=== PATIENT | female | born 1985 | race Caucasian/White ===

== ENCOUNTER 2017-12-05 15:09 | Emergency (ER) | payer MEDICAID ==
[~2017-12-05] VITALS: Ht 147.3 cm; Wt 53.1 kg
[~2017-12-05 15:09] MED LIST: ACHD5005 PO; AMOX-355 PO; CETI10TA17 PO; CODE-54 PO; DICL50TA4 PO; HYDR-34 PO; HYDR1CAP2 PO; IBP600T1 PO; META800T5 PO; METH4TAB PO; METR500T PO; NITR-65 PO; ONDN4T PO; PNV1CAPS13 PO; PRESTIQUE; SULF1TAB38 PO; VENL25TA5 PO
--- OUTSIDE RECORDS SUMMARY | 2017-12-05 15:16 | XMS REPORT | Continuity Of Care Document ---
Author Author [facility] Organization [facility] Address [address] [place] [address] Phone Care Team Providers Care Product Designer Name Role Phone MATT LARES MD Unavailable UNASSIGNED, ED PHYSICIAN Unavailable Unavailable SOHAIL CARVER, ISAMAR Epstein AT [phone] TELLO QUINONES MD Unavailable Results Results No results recorded. Allergies and Adverse Reactions Allergies and Adverse Reactions Patient Unit Number: [id number] Agent Type Reaction Severity Status BUPROPION Drug Allergy Unknown Unknown Active Problem List Problem List Visit/Account #[id number] (November 11, 2015 8:35pm - November 11, 2015 10:50pm) Acute Problems: Code/Condition Comments Documented Start Date Documented Resolved Date Code (s) Toothache ICD10: K08.8 Toothache ICD9: 525.9 Toothache SNOMED: 08617900 Toothache Plan of Care Plan Of Care No Plan Of Care Data. Vital Signs Vital Signs Visit/Account #[id number] (November 11, 2015 8:35pm - November 11, 2015 10:50pm) Sign First Result Last Result Code(s) Temperature in Fahrenheit Temperature (Fahrenheit): 98.4 [degF] On November 11, 2015 8:30pm 8310-5 Body Temperature Weight in Kilograms Weight (Kilograms): 50 kg On November 11, 2015 8:30pm 3141-9 Weight Measured 12601-3 Body weight measured in kilograms Functional Status Functional and Cognitive Status No Functional Status Data Medications Inpatient/Ordered Medications - Medications administered during hospital visit Visit/Account #[id number] (November 11, 2015 8:35pm - November 11, 2015 10:50pm) Medication Route Sig/Schedule Precondition/Indication Comments/Instructions Codes TORADOL INJ(KETOROLAC TROMETHAMINE) 60 MG/2 ML VIAL Dose: 2 ML INTRAMUSC NOW 2 ML Ketorolac Tromethamine 30 MG/ML Injection (RxNorm): [id number] TORADOL INJ (KETOROLAC TROMETHAMINE) [facility]: [id number] History Of Encounters Encounters Visit/Account #[id number] (November 11, 2015 8:35pm - November 11, 2015 10:50pm) Account Status Physican Of Record Reason For Visit Visit Diagnosis Start Date/Time Stop Date/Time ER ISAMAR SAUCEDA MD DENTAL PAIN K08.8: OTHER SPECIFIED DISORDERS OF TEETH AND SUPPORTING STRUCTURES ICD10 Nov 11, 2015 8:35pm Nov 11, 2015 10:50pm History of Procedures Procedure List No procedures recorded. Discharge Instructions Discharge Instructions Visit/Account #[id number] (November 11, 2015 8:35pm - November 11, 2015 10:50pm) DISCHARGE INSTRUCTIONS Physician Documentation Social History Social History No Social History Data. Immunizations Immunizations Patient Unit Number: [id number] Immunizations No immunizations recorded.
[2017-12-05] MEDS ORDERED: PRD20T PO (17:23)
[2017-12-05] MEDS ORDERED: CEPH-507 PO (17:23)
--- NOTE | 2017-12-05 17:23 | ED Integumentary General ---
General Chief Complaint: Bite-Animal/Human/Insect Stated Complaint: BUG BITES Nursing Triage Note: AMBULATED TO ROOM 02 WITHOUT DIFFICULTY. STATES SHE BEGAN GETTING BITES ABOUT 2 WEEKS AGO. WAS TREATED AT [place] LAST WEEK BUT THEY CAME BACK. STATES SHE DETAILS CARS AND BELIEVES THAT IS WHERE IT IS COMING FROM. PT NOTIFIED THAT HER WORK CALLED AND THEY WOULD NOT BE TURNING THIS INTO WORKMANS COMP. History of Present Illness Date Seen by Provider: Dec 05, 2017 Time Seen by Provider: 16:45 Timing/Duration: getting worse Severity: moderate Location: torso, extremities Possible Cause: no cause identified, insect bite Associated Symptoms: change in skin texture, hives Allergies and Home Medications Allergies Coded Allergies: No Known Drug Allergies (Verified , 07/10/07) Home Medications Cephalexin 500 Mg Capsule, 500 MG PO TID Prescribed by: JOSE LYNNE on 12/05/171722 Diclofenac Potassium 50 Mg Tablet, 50 MG PO Q8H PRN for PAIN Prescribed by: JO-ANN CHÁVEZ on 06/15/14436 Metaxalone 800 Mg Tablet, 800 MG PO Q6H PRN for SPASMS Prescribed by: JO-ANN CHÁVEZ on 06/15/14436 Prednisone 20 Mg Tab, 20 MG PO DAILY take 3 tables once daily for 3 days; take 2 tablets once daily for 3 days; take 1 tablet once daily for 3 days. Prescribed by: JOSE LYNNE on 12/05/171722 Venlafaxine Hcl 25 Mg Tablet, 75 MG PO BID, (Reported) Patient Home Medication List Home Medication List Reviewed: Yes Constitutional: no symptoms reported, see HPI Respiratory: no symptoms reported, see HPI; No cough, No short of breath Skin: see HPI, change in color, pruritus, rash All Other Systems Reviewed Negative Unless Noted: Yes Past Scpfblx-Pzrspg-Thhhxq Hx Past Med/Social Hx: Reviewed Nursing Past Med/Soc Hx Patient Social History Alcohol Use: Denies Use Recreational Drug Use: No Smoking Status: Current Everyday Smoker Recent Foreign Travel: No Contact w/Someone Who Travel: No Recent Infectious Disease Expo: No Recent Hopitalizations: No Seasonal Allergies Seasonal Allergies: No Past Medical History Surgeries: Yes Tonsillectomy Respiratory: No Cardiac: No Neurological: No Last Menstrual Period: Dec 05, 2017 Reproductive Disorders: No Gastrointestinal: No Musculoskeletal: No Endocrine: No Cancer: No Psychosocial: No Integumentary: No Blood Disorders: No Physical Exam Vital Signs Vital Signs - First Documented 12/05/17 16:28 Temp 98.0 Pulse 117 Resp 16 B/P (MAP) 136/92 (107) Pulse Ox 96 O2 Delivery Room Air Capillary Refill : Less Than 3 Seconds General Appearance: WD/WN, no apparent distress HEENT: PERRL/EOMI, normal ENT inspection, TMs normal, pharynx normal Neck: non-tender, full range of motion, supple, normal inspection; No lymphadenopathy (R), No lymphadenopathy (L) Cardiovascular: normal peripheral pulses, regular rate, rhythm Respiratory: chest non-tender, lungs clear, normal breath sounds Gastrointestinal: normal bowel sounds, non tender, soft Extremities: normal range of motion, non-tender, normal inspection, normal capillary refill Neurologic/Psychiatric: no motor/sensory deficits, alert, normal mood/affect Skin: normal color Skin Problem Location: generalized, upper extremities, torso, lower extremities Skin Problem Character: macules, papules Lymphatic: no adenopathy Progress/Results/Core Measures Results/Orders My Orders Orders - JOSE LYNNE Prednisone Tablet (Deltasone Tablet) (12/05/17 17:30) Medications Given in ED Current Medications Medications Dose Ordered Sig/[place] Route Start Time Stop Time Status Last Admin Dose Admin Prednisone 40 mg ONCE ONCE PO 12/05/17 17:30 12/05/17 17:31 DC 12/05/17 17:27 40 MG Vital Signs/I&O 12/05/17 12/05/17 16:28 17:28 Temp 98.0 98.0 Pulse 117 117 Resp 16 16 B/P (MAP) 136/92 (107) 136/92 (107) Pulse Ox 96 96 O2 Delivery Room Air Blood Pressure Mean: 107 Departure Impression Primary Impression: Allergic reaction Qualified Codes: T78.40XA - Allergy, unspecified, initial encounter Additional Impression: Insect bite Qualified Codes: W57.XXXA - Bitten or stung by nonvenomous insect and other nonvenomous arthropods, initial encounter Disposition: 01 HOME, SELF-CARE Condition: Stable Departure-Patient Inst. Decision time for Depature: 17:15 Referrals: NAKIA VILLATORO MD (PCP/Family) Primary Care Physician Patient Instructions: Hives (DONNA), Insect Bites and Stings (DC) Add. Discharge Instructions: Continue taking the loratadine once a day in the morning. Take the prednisone as ordered. Take the Keflex as ordered. Take Benadryl 50 mg at bedtime. Use Aveeno oatmeal soaks in the bathtub once daily. Wear gloves when around chemicals and cleaning cars. Follow-up with your primary care provider if symptoms are not improving or worsen. Return to emergency department if rash worsens, short of breath or difficulty breathing, swelling of the lips, tongue or eyes, or new problems. All discharge instructions reviewed with patient and/or family. Voiced understanding. Scripts Cephalexin (Keflex) 500 Mg Capsule 500 MG PO TID for 7 Days, #21 CAP 0 Refills Prov: JOSE LYNNE 12/05/17 Prednisone (Prednisone) 20 Mg Tab 20 MG PO DAILY, #18 TAB 0 Refills take 3 tables once daily for 3 days; take 2 tablets once daily for 3 days; take 1 tablet once daily for 3 days. Prov: JOSE LYNNE 12/05/17 Copy Copies To 1: NAKIA VILLATORO MD, AMY ARNP Dec 05, 2017 17:23
[2017-12-05 17:28] VITALS: BP 136/92
[2017-12-05] MEDS ORDERED: predniSONE 20 MG TAB PO ONE (17:30)
== END 2017-12-05 17:28 | disposition home or self-care (01) ==
LOC: EDUNIT# 15:09 → ER 15:12
DX: T78.40XA Allergy, unspecified, initial encounter (principal); S40.862A Insect bite (nonvenomous) of left upper arm, initial encounter; S40.861A Insect bite (nonvenomous) of right upper arm, initial encounter; S80.861A Insect bite (nonvenomous), right lower leg, initial encounter; S80.862A Insect bite (nonvenomous), left lower leg, initial encounter; S30.861A Insect bite (nonvenomous) of abdominal wall, initial encounter; F17.210 Nicotine dependence, cigarettes, uncomplicated; Z79.52 Long term (current) use of systemic steroids; Z90.89 Acquired absence of other organs; W57.XXXA Bitten or stung by nonvenomous insect and other nonvenomous arthropods, initial encounter
CPT/HCPCS: 99283

== ENCOUNTER 2019-03-03 18:38 | Emergency (ER) | payer SELFPAY ==
[~2019-03-03] VITALS: Ht 147.3 cm; Wt 53.0 kg
[~2019-03-03 18:38] MED LIST changes: +CEPH-507 PO; +PRD20T PO
[2019-03-03] MEDS ORDERED: LIDOCAINE 1% INJ 20 ML 20 ML VIAL ONE (18:57)
[2019-03-03] MEDS ORDERED: LACTATED RINGERS 1,000 ML IV ONE (19:15)
[2019-03-03 19:24] LABS: BASOPHILS % (AUTO) 0 % (0-10); EOSINOPHILS # (AUTO) 0.2 10^3/uL (0.0-0.3); EOSINOPHILS % (AUTO) 2 % (0-10); HEMATOCRIT 44 % (35-52); HEMOGLOBIN 15.8 G/DL (11.5-16.0); LYMPHOCYTES # (AUTO) 2.8 X 10^3 (1.0-4.0); LYMPHOCYTES % (AUTO) 31 % (12-44); MEAN CORPUSCULAR HEMOGLOBIN 31 PG (25-34); MEAN CORPUSCULAR HGB CONC 36 G/DL (32-36); MEAN CORPUSCULAR VOLUME 87 FL (80-99); MEAN PLATELET VOLUME 10.1 FL (7.4-10.4); MONOCYTES # (AUTO) 0.9 X 10^3 (0.0-1.0); MONOCYTES % (AUTO) 10 % (0-12); NEUTROPHILS # (AUTO) 5.2 X 10^3 (1.8-7.8); NEUTROPHILS % (AUTO) 57 % (42-75); PLATELET COUNT 247 10^3/uL (130-400); RED CELL DISTRIBUTION WIDTH 12.1 % (10.0-14.5)
[2019-03-03 19:48] LABS: INR 0.9 (0.8-1.4); PROTHROMBIN TIME PATIENT 12.8 SEC (12.2-14.7)
[2019-03-03 19:52] LABS: ALANINE AMINOTRANSFERASE 17 U/L (0-55); ALBUMIN 4.5 GM/DL (3.2-4.5); ALKALINE PHOSPHATASE 52 U/L (40-136); AMYLASE 41 U/L (25-125); BILIRUBIN,TOTAL 0.3 MG/DL (0.1-1.0); BUN/CREATININE RATIO 28; CALCIUM 9.4 MG/DL (8.5-10.1); CARBON DIOXIDE 24 MMOL/L (21-32); CHLORIDE 105 MMOL/L (98-107); CREATINE KINASE 264 U/L (29-168); CREATININE SERUM 0.75 MG/DL (0.60-1.30); GFR ESTIMATED > 60; GLUCOSE 93 MG/DL (70-105); LIPASE 39 U/L (8-78); POTASSIUM 3.5 MMOL/L (3.6-5.0); SODIUM 140 MMOL/L (135-145); TOTAL PROTEIN 7.4 GM/DL (6.4-8.2)
[2019-03-03 19:54] LABS: ACETAMINOPHEN < 10 UG/ML (10-30)
[2019-03-03 19:59] LABS: BILIRUBIN,URINE NEGATIVE (NEGATIVE); CLARITY,URINE SLIGHTLY CLOUDY; COLOR,URINE YELLOW; GLUCOSE, URINE (UA) NEGATIVE (NEGATIVE); KETONES,URINE NEGATIVE (NEGATIVE); LEUKOCYTE ESTERASE ,URINE 2+ (NEGATIVE); NITRITE,URINE NEGATIVE (NEGATIVE); PH,URINE 7 (5-9); PROTEIN,URINE NEGATIVE (NEGATIVE)
[2019-03-03 20:12] LABS: CREATINE KINASE MB 3.5 NG/ML (<6.6); TSH (THYROID ANALYZER) 1.08 UIU/ML (0.35-4.94)
[2019-03-03 20:15] LABS: AMORPHOUS SEDIMENT,UR LARGE AMOR PHOSPHATE /LPF; BACTERIA,URINE LARGE /HPF
[2019-03-03 20:17] LABS: AMPHETAMINE SCREEN, URINE POSITIVE (NEGATIVE); BARBITURATE SCREEN URINE NEGATIVE (NEGATIVE); BENZODIAZEPINES SCREEN URINE NEGATIVE (NEGATIVE); CANNABINOID SCREEN, URINE NEGATIVE (NEGATIVE); COCAINE SCREEN URINE NEGATIVE (NEGATIVE); METHADONE STAT NEGATIVE (NEGATIVE); METHAMPHETAMINE SCREEN URINE S NEGATIVE (NEGATIVE); OPIATE SCREEN URINE NEGATIVE (NEGATIVE); OXYCODONE STAT NEGATIVE (NEGATIVE); PROPOXYPHENE STAT NEGATIVE (NEGATIVE); TRICYCLIC ANTIDEPRESSANTS SCRE NEGATIVE (NEGATIVE)
[2019-03-03] MEDS ORDERED: NS 100 ML (IVPB) BAG IV ONE (21:00)
[2019-03-03] MEDS ORDERED: IOHEXOL 350 MG/ML 100 ML (OMNIPAQUE 350) VIAL IV ONE (21:00)
[2019-03-03] MEDS ORDERED: HOLD METFORMIN - RECEIVED CONTRAST 20 ML VIAL IV SCH (21:00)
--- NOTE | 2019-03-03 22:25 | Diagnostic Imaging Report ---
CLINICAL INDICATION: Patient with chest and back pain x1 week. EXAMS: X-ray of the chest PA view and x-ray of the abdomen supine and upright views. COMPARISONS: CT scan of the chest, abdomen, and pelvis dated 06/15/2014. FINDINGS: LUNGS/ PLEURA: Lungs are clear. There is no pneumothorax. There is no pleural effusion. MEDIASTINUM: Unremarkable. PULMONARY VASCULATURE: Unremarkable. HEART: Unremarkable. BONES/ EXTRATHORACIC SOFT TISSUE: There is mild left curvature of the thoracolumbar spine. ABDOMEN AND PELVIS: Unremarkable x-ray of the abdomen with nonobstructed bowel gas pattern. There is no evidence of abdominal free air. IUD is seen overlying the pelvis. There are no focal calcifications overlying the expected regions/ pathways of both kidneys, ureters, and bladder regions. IMPRESSION: 1: Unremarkable chest x-ray exam with no radiographic evidence of acute cardiopulmonary process. 2: Unremarkable x-ray of the abdomen. Dictated by: Dictated on workstation # [id number]
--- NOTE | 2019-03-03 22:45 | Diagnostic Imaging Report ---
Clinical Indication: Patient with chest and back pain x1 week. No surgical history. Exam: CT angiogram of the chest, abdomen, and pelvis performed with 100 cc Omnipaque 350 IV contrast. Coronal and oblique MIP images of the vasculature were created to better evaluate anatomy. Auto Exposure Controls were utilized during the CT exam to meet ALARA standards for radiation dose reduction. Comparison: CT scan of the chest, abdomen, and pelvis dated 06/15/2014. Findings: CT chest: Lungs are clear. There is no pleural effusion or pneumothorax. Pulmonary bronchi are unremarkable. Thyroid gland is unremarkable. There is no mediastinal or hilar lymphadenopathy. There is no axillary lymphadenopathy. There is no mediastinal mass. There is dense contrast bolus within the right subclavian vein and superior vena cava which causes streak artifact obscuring portions of the pulmonary arteries and mediastinal structures. There is no evidence of pulmonary embolism. There is no thoracic, or abdominal aortic aneurysm or dissection. The bilateral common iliac arteries are unremarkable. CT abdomen and pelvis: The liver, spleen, pancreas, gallbladder, and adrenal glands are unremarkable. Both kidneys are unremarkable with no hydronephrosis, stones, or mass. There is no significant change to the multiple mesenteric lymph nodes. The appendix is unremarkable. There is no intestinal obstruction. There is minimal free fluid in the pelvis which may be physiologic. The uterus and adnexal structures show no significant abnormality. Suspected corpus luteal cyst in the left adnexal region measuring roughly 1.6 cm. Bladder is fluid-filled with no gross abnormality. IUD is seen in the uterus. Appendix is unremarkable. There is a moderate amount of stool within the right colon and transverse colon. The extra-abdominal and extrapelvic soft tissue structures are unremarkable. Bones show no significant abnormality. Impression: 1: There is no evidence of pulmonary embolism, thoracic, or abdominal aneurysm or dissection. 2: There is no acute chest abnormality. Lungs are clear. 3: There is no acute abdominal or pelvic abnormality. 4: Suspected corpus luteal cyst measuring 1.6 cm in the left adnexal region. There is minimal free fluid in the pelvis, likely physiologic. 5: Again seen are nonspecific multiple mesenteric lymph nodes. Dictated by: Dictated on workstation # [id number]
[2019-03-03] MEDS ORDERED: ONDA4TAB11 PO (22:57)
[2019-03-03] MEDS ORDERED: HYOS0.1283 SL (22:57)
[2019-03-03] MEDS ORDERED: NITR-65 PO (22:57)
[2019-03-03] MEDS ORDERED: PANT40TA2 PO (22:57)
--- NOTE | 2019-03-03 22:57 | ED Abdominal Pain ---
General Chief Complaint: Abdominal/GI Problems Stated Complaint: CP Nursing Triage Note: ABD PAIN THAT RADIATES INTO BACK X1 WEEK. Sepsis Screen: No Definite Risk Allergies and Home Medications Allergies Coded Allergies: No Known Drug Allergies (Verified , 07/10/07) Home Medications Unable to Obtain Active Prescriptions or Reported Meds Past Qvikkfx-Spukvj-Hmvgnw Hx Patient Social History Alcohol Use: Occasionally Uses Recreational Drug Use: Yes (POT) Smoking Status: Current Everyday Smoker Recent Foreign Travel: No Contact w/Someone Who Travel: No Recent Infectious Disease Expo: No Recent Hopitalizations: No Physical Abuse: No Sexual Abuse: No Mistreated: No Fear: No Seasonal Allergies Seasonal Allergies: No Past Medical History Surgeries: Yes Tonsillectomy Respiratory: No Cardiac: No Neurological: No Reproductive Disorders: No Gastrointestinal: No Musculoskeletal: No Endocrine: No Cancer: No Psychosocial: No Integumentary: No Blood Disorders: No Physical Exam Vital Signs Vital Signs - First Documented 03/03/19 18:46 Temp 36.5 Pulse 102 Resp 16 B/P (MAP) 114/79 (91) Pulse Ox 100 O2 Delivery Room Air Capillary Refill : Less Than 3 Seconds Height/Weight/BMI Height: 4'10.00" Weight: 117lbs. oz. 53.940816py; 24.00 BMI Method:Stated Progress/Results/Core Measures Results/Orders Lab Results Laboratory Tests Test 03/03/19 19:20 03/03/19 19:41 Range/Units White Blood Count 9.0 4.3-11.0 10^3/uL Red Blood Count 5.08 4.35-5.85 10^6/uL Hemoglobin 15.8 11.5-16.0 G/DL Hematocrit 44 35-52 % Mean Corpuscular Volume 87 80-99 FL Mean Corpuscular Hemoglobin 31 25-34 PG Mean Corpuscular Hemoglobin Concent 36 32-36 G/DL Red Cell Distribution Width 12.1 10.0-14.5 % Platelet Count 247 130-400 10^3/uL Mean Platelet Volume 10.1 7.4-10.4 FL Neutrophils (%) (Auto) 57 42-75 % Lymphocytes (%) (Auto) 31 12-44 % Monocytes (%) (Auto) 10 0-12 % Eosinophils (%) (Auto) 2 0-10 % Basophils (%) (Auto) 0 0-10 % Neutrophils # (Auto) 5.2 1.8-7.8 X 10^3 Lymphocytes # (Auto) 2.8 1.0-4.0 X 10^3 Monocytes # (Auto) 0.9 0.0-1.0 X 10^3 Eosinophils # (Auto) 0.2 0.0-0.3 10^3/uL Basophils # (Auto) 0.0 0.0-0.1 10^3/uL Prothrombin Time 12.8 12.2-14.7 SEC INR Comment 0.9 0.8-1.4 Activated Partial Thromboplast Time 34 24-35 SEC Sodium Level 140 135-145 MMOL/L Potassium Level 3.5 L 3.6-5.0 MMOL/L Chloride Level 105 98-107 MMOL/L Carbon Dioxide Level 24 21-32 MMOL/L Anion Gap 11 5-14 MMOL/L Blood Urea Nitrogen 21 H 7-18 MG/DL Creatinine 0.75 0.60-1.30 MG/DL Estimat Glomerular Filtration Rate > 60 BUN/Creatinine Ratio 28 Glucose Level 93 70-105 MG/DL Calcium Level 9.4 8.5-10.1 MG/DL Corrected Calcium 9.0 8.5-10.1 MG/DL Magnesium Level 2.0 1.6-2.4 MG/DL Total Bilirubin 0.3 0.1-1.0 MG/DL Aspartate Amino Transf (AST/SGOT) 18 5-34 U/L Alanine Aminotransferase (ALT/SGPT) 17 0-55 U/L Alkaline Phosphatase 52 40-136 U/L Total Creatine Kinase 264 H 29-168 U/L Creatine Kinase MB 3.5 <6.6 NG/ML Myoglobin 62.7 10.0-92.0 NG/ML Troponin I < 0.028 <0.028 NG/ML B-Type Natriuretic Peptide < 10.0 <100.0 PG/ML Total Protein 7.4 6.4-8.2 GM/DL Albumin 4.5 3.2-4.5 GM/DL Amylase Level 41 25-125 U/L Lipase 39 8-78 U/L TSH [place] Testing 1.08 0.35-4.94 UIU/ML Serum Test, Qualitative NEGATIVE NEGATIVE Acetaminophen Level < 10 L 10-30 UG/ML Serum Alcohol < 10 <10 MG/DL Urine Color YELLOW Urine Clarity SLIGHTLY CLOUDY Urine pH 7 5-9 Urine Specific [place] 1.010 L 1.016-1.022 Urine Protein NEGATIVE NEGATIVE Urine Glucose (UA) NEGATIVE NEGATIVE Urine Ketones NEGATIVE NEGATIVE Urine Nitrite NEGATIVE NEGATIVE Urine Bilirubin NEGATIVE NEGATIVE Urine Urobilinogen NORMAL NORMAL MG/DL Urine Leukocyte Esterase 2+ H NEGATIVE Urine RBC (Auto) 5+ H NEGATIVE Urine RBC 5-10 H /HPF Urine WBC 5-10 H /HPF Urine Crystals PRESENT H /LPF Urine Amorphous Sediment LARGE ADORE PHOSPHATE H /LPF Urine Bacteria LARGE H /HPF Urine Casts NONE /LPF Urine Mucus NEGATIVE /LPF Urine Culture Indicated YES Urine Opiates Screen NEGATIVE NEGATIVE Urine Oxycodone Screen NEGATIVE NEGATIVE Urine Methadone Screen NEGATIVE NEGATIVE Urine Propoxyphene Screen NEGATIVE NEGATIVE Urine Barbiturates Screen NEGATIVE NEGATIVE Ur Tricyclic Antidepressants Screen NEGATIVE NEGATIVE Urine Phencyclidine Screen NEGATIVE NEGATIVE Urine Amphetamines Screen POSITIVE H NEGATIVE Urine Methamphetamines Screen NEGATIVE NEGATIVE Urine Benzodiazepines Screen NEGATIVE NEGATIVE Urine Cocaine Screen NEGATIVE NEGATIVE Urine Cannabinoids Screen NEGATIVE NEGATIVE My Orders Orders - ALIZA LOMBARDO DO Lidocaine 1% Inj 20 Ml (Xylocaine 1% Inj (03/03/19 18:57) Ed Iv/Invasive Line Start (03/03/19 19:15) Ekg Tracing (03/03/19 19:15) Monitor-Rhythm Ecg Trace Only (03/03/19 19:15) Acetaminophen (03/03/19 19:15) Alcohol (03/03/19 19:15) Amylase (03/03/19 19:15) BNP (03/03/19 19:15) Cbc With Automated Diff (03/03/19 19:15) Comprehensive Metabolic Panel (03/03/19 19:15) Creatine Kinase (03/03/19 19:15) Creatine Kinase Mb (03/03/19 19:15) Drug Screen Stat (Urine) (03/03/19 19:15) Hcg,Qualitative Serum (03/03/19 19:15) Lipase (03/03/19 19:15) Magnesium (03/03/19 19:15) Protime With Inr (03/03/19 19:15) Partial Thromboplastin Time (03/03/19 19:15) Thyroid Analyzer (03/03/19 19:15) Ua Culture If Indicated (03/03/19 19:15) Myoglobin Serum (03/03/19 19:15) Troponin I (03/03/19 19:15) Ed Iv/Invasive Line Start (03/03/19 19:15) Lactated Ringers (Lr 1000 Ml Iv Solution (03/03/19 19:15) Urine Culture (03/03/19 19:41) Acute Abd Series (03/03/19 20:28) Ct Angio Chst/Abd/Pelv W (03/03/19 20:28) Iohexol Injection (Omnipaque 350 Mg/Ml 1 (03/03/19 21:00) Received Contrast (Hold Metformin- Contr (03/03/19 21:00) Ns (Ivpb) (Sodium Chloride 0.9% Ivpb Bag (03/03/19 21:00) Medications Given in ED Current Medications Medications Dose Ordered Sig/[place] Route Start Time Stop Time Status Last Admin Dose Admin Iohexol 100 ml ONCE ONCE IV 03/03/19 21:00 03/03/19 21:29 DC 03/03/19 21:42 100 ML Lactated Ringer's 1,000 ml @ 0 mls/hr Q0M ONCE IV 03/03/19 19:15 03/03/19 19:17 DC 03/03/19 19:30 1,000 MLS/HR Sodium Chloride 100 ml ONCE ONCE IV 03/03/19 21:00 03/03/19 21:29 DC 03/03/19 21:42 80 ML Vital Signs/I&O 03/03/19 18:46 Temp 36.5 Pulse 102 Resp 16 B/P (MAP) 114/79 (91) Pulse Ox 100 O2 Delivery Room Air Blood Pressure Mean: 91 Departure Impression Primary Impression: CHEST, ABDOMINAL AND BACK PAIN Additional Impressions: Illicit drug use UTI (urinary tract infection) Disposition: 01 HOME, SELF-CARE Condition: Improved Departure-Patient Inst. Referrals: NAKIA VILLATORO MD (PCP/Family) Primary Care Physician Patient Instructions: Urinary Tract Infection, Adult (DC), Acute Abdomen (Belly Pain), Adult (DC), Drug Abuse and Drug Addiction (DC) Add. Discharge Instructions: CLEAR LIQUIDS--WATER, BROTH, JELLO, GATORADE TOMORROW IF YOU ARE BETTER, ADD BRATS DIET TO CLEAR LIQUIDS--BANANAS, RICE, APPLESAUCE, TOAST, SALTINES NO DRUGS!! FOLLOW UP WITH YOUR DR THIS WEEK FOR FURTHER CARE All discharge instructions reviewed with patient and/or family. Voiced understanding. Scripts Hyoscyamine Sulfate (Levsin-Sl) 0.125 Mg Tab.subl 1-2 TAB SL Q4H for Abdominal Pain, #10 TAB Prov: ALIZA LOMBARDO DO 03/03/19 Ondansetron (Ondansetron Odt) 4 Mg Tab.rapdis 4 MG PO Q4H for Nausea/Vomiting, #10 TAB Prov: ALIZA LOMBARDO DO 03/03/19 Pantoprazole Sodium (Protonix) 40 Mg Tablet.dr 40 MG PO DAILY, #15 TAB Prov: ALIZA LOMBARDO DO 03/03/19 Nitrofurantoin Monohyd/M-Cryst (Macrobid 100 mg Capsule) 100 Mg Capsule 100 MG PO BID, #20 CAP Prov: ALIZA LOMBARDO DO 03/03/19 ALIZA LOMBARDO DO Mar 03, 2019 22:57
[2019-03-03] MEDS ORDERED: cefTRIAXone FOR IV USE 1,000 MG in WATER (STERILE) FOR INJECTION 10 ML IV ONE (23:00)
[2019-03-03 23:18] VITALS: BP 121/76
== END 2019-03-03 23:18 | disposition home or self-care (01) ==
LOC: EDUNIT# 18:38 → ER 18:39
DX: R07.9 Chest pain, unspecified (principal); N39.0 Urinary tract infection, site not specified; F12.90 Cannabis use, unspecified, uncomplicated; F17.200 Nicotine dependence, unspecified, uncomplicated; Z90.89 Acquired absence of other organs
CPT/HCPCS: 36415; 71275; 74022; 74174; 80053; 80306; 80320; 80329; 81000; 82150; 82550; 82553; 83690; 83735; 83874; 83880; 84443; 84484; 84703; 85025; 85610; 85730; 87088; 93005; 93041